=== PATIENT | female | born 1950 | race Caucasian/White ===

== ENCOUNTER 2023-10-09 20:04 | Emergency (ER) | payer MEDICARE ==
[2023-10-09 20:08] VITALS: RESP 16; TEMP 98.3
--- NOTE | 2023-10-09 20:09 | ERPHSYRPT ---
- History of Present Illness Time Seen by Provider: 10/09/23 20:09 Source: patient, family Exam Limitations: no limitations Physician History: This is a 72-year-old white female patient of Dr. Funez who presents with sudden onset of mid back pain approximately 1500 prior to arrival today. She has had a moderate cough that is productive of yellow sputum. The pain is described as sharp and stabbing. Patient does see a extruding press adjuster, Dr. Munoz. In January 2023 patient underwent an echocardiogram which showed mild aortic insufficiency and trace mitral valve and tricuspid valve regurgitation. In addition the ejection fraction was estimated at 70% which is normal. The echo also showed normal left ventricular systolic function. In January 2023 she also underwent a nuclear medicine stress test which showed a normal ejection fraction. There was no scintigraphic evidence for exercise-induced reversible ischemia. Patient is here today because of cough and significant mid back pain. She has had approximately 1 week history of flulike symptoms. This includes the cough that is productive and diarrhea. She has not had nausea or vomiting Timing/Duration: today Activities at Onset: none Severity of Dyspnea-Max: mild Severity of Dyspnea-Current: mild Possible Cause: no prior episodes Modifying Factors: Improves With: coughing Associated Symptoms: cough, painful breathing, productive cough (Yellowish sputum) Allergies/Adverse Reactions: Penicillins Allergy (Severe, Verified 10/09/23 20:25) Anaphylactic Reaction Home Medications: Amlodipine Besylate [Norvasc] 10 mg PO BID 10/09/23 [History] Estradiol [Estrace] 2 mg PO DAILY 10/09/23 [History] Furosemide 20 mg [Lasix 20 mg] 20 mg PO DAILY 10/09/23 [History] Hydrocodone/Acetaminophen [Hydrocodone-Acetamin 10-325 mg] 1 each PO Q4-6HPRN PRN 10/09/23 [History] Levothyroxine Sodium [Synthroid] mcg PO DAILY 10/09/23 [History] Montelukast Sodium 10 mg [Singulair 10 MG] 10 mg PO DAILY 10/09/23 [History] Propranolol HCl [Inderal Xl] 80 mg PO DAILY 10/09/23 [History] Tizanidine HCl 4 mg [Zanaflex 4 MG] 4 mg PO QID PRN PRN 10/09/23 [History] Zolpidem Tartrate 10 mg [Ambien 10 MG] 10 mg PO HS 10/09/23 [History] Travel Risk - International Travel Have you traveled outside of the country in past 3 weeks: No - Emerging Infectious Disease Are you exhibiting symptoms associated with any current EIDs: Yes Symptoms: Cough: New Onset, Diarrhea - Review of Systems Eyes: No Symptoms Ears, Nose, & Throat: No Symptoms Respiratory: Cough Cardiac: No Symptoms Abdominal/Gastrointestinal: Diarrhea, No Abdominal Pain, No Nausea, No Vomiting Genitourinary Symptoms: No Symptoms Musculoskeletal: No Symptoms Skin: No Symptoms Neurological: No Symptoms Psychological: No Symptoms Endocrine: No Symptoms Hematologic/Lymphatic: No Symptoms Immunological/Allergic: No Symptoms All Other Systems: Reviewed and Negative - Past Medical History Pertinent Past Medical History: Yes - Nursing Vital Signs Nursing Vital Signs: Initial Vital Signs Temperature 98.3 F 10/09/23 20:05 Pulse Rate 98 H 10/09/23 20:05 Respiratory Rate 16 10/09/23 20:05 Blood Pressure 147/110 10/09/23 20:05 O2 Sat by Pulse Oximetry 99 10/09/23 20:05 Pain Scale Pain Intensity 9 - Physical Exam General Appearance: no apparent distress, alert, anxiety, thin Eye Exam: PERRL/EOMI, eyes nml inspection Ears, Nose, Throat Exam: hearing grossly normal, normal ENT inspection, normal pharynx Neck Exam: normal inspection, non-tender, supple, full range of motion Respiratory Exam: normal breath sounds, lungs clear, airway intact, No chest tenderness, No respiratory distress Cardiovascular/Chest Exam: normal heart sounds, regular rate/rhythm, normal peripheral pulses Abdominal/Gastrointestinal Exam: soft, normal bowel sounds, No tenderness Rectal Exam: not done Extremity Exam: non-tender, normal range of motion, normal inspection, normal capillary refill, no calf tenderness, no pedal edema, pelvis stable Neurologic Exam: alert, oriented x 3, cooperative, director multiple sclerosis center II-XII nml as tested, normal mood/affect, nml cerebellar function, nml station & gait, sensation nml Skin Exam: normal color, warm, dry Lymphatic Exam: No adenopathy SpO2 Interpretation: normal SpO2: 99 O2 Delivery: Room Air - Course Nursing assessment & vital signs reviewed: Yes EKG Interpreted by Me: RATE (98), Sinus Rhythm, NORMAL AXIS, prolonged QT interval, Other (No acute ischemic changes on today's twelve-lead EKG. Her QTc is 506. No comparison twelve-lead EKG available) Ordered Tests: Active Orders 24 hr Category Date Time Status Fitness Manager STAT Care 10/09/23 20:23 Active EKG-ER Only STAT Care 10/09/23 20:22 Active IV Insertion STAT Care 10/09/23 20:22 Active Pulse Oximetry (ED) STAT Care 10/09/23 20:22 Active CHEST WITHOUT CONTRAST [CT] Stat Exams 10/09/23 21:40 Completed BLOOD CULTURE Stat Lab 10/09/23 20:58 Received CBC W DIFF Stat Lab 10/09/23 20:34 Completed CMP Stat Lab 10/09/23 20:34 Completed D-DIMER QUANTITATIVE Stat Lab 10/09/23 20:34 Completed Lactic Acid Stat Lab 10/09/23 20:23 Completed MAGNESIUM Stat Lab 10/09/23 20:34 Completed NT PRO BNPII Stat Lab 10/09/23 20:34 Completed TROPONIN Q4H Lab 10/09/23 20:34 Completed TROPONIN Q4H Lab 10/10/23 00:30 Ordered TROPONIN Q4H Lab 10/10/23 04:30 Ordered Medication Summary Discontinued Medications Generic Name Dose Route Start Last Admin Trade Name Freq PRN Reason Stop Dose Admin Aspirin 324 mg 10/09/23 20:22 10/09/23 20:39 Aspirin 81 Mg Tab.Chew PO 10/09/23 20:23 324 mg STAT ONE Administration Aspirin Confirm 10/09/23 20:38 Aspirin 81 Mg Tab.Chew Administered 10/09/23 20:39 Dose 324 mg .ROUTE .[facility] ONE Lab/Rad Data: Laboratory Result Diagrams 10/09/23 20:34 10/09/23 20:34 Laboratory Results 10/09/23 10/09/23 10/09/23 Range/Units 20:58 20:34 20:34 WBC (3.98-10.04) x10^3/uL RBC (3.93-5.22) x10^6/uL Hgb (11.2-15.7) g/dL Hct (34.1-44.9) % MCV (79.4-94.8) fL MCH (25.6-32.2) pg MCHC (32.2-35.5) g/dL RDW (11.7-14.4) % Plt Count (182-369) x10^3/uL MPV (9.4-12.3) fL Gran % (34.0-71.1) % Immature Gran % (Auto) (0.001-0.429) % Nucleat RBC Rel Count (0.00-0.2) % Eos # (Auto) (0.04-0.36) x10^3/uL Immature Gran # (Auto) (0.001-0.031) x10^3u/L Absolute Lymphs (auto) (1.18-3.74) x10^3/uL Absolute Monos (auto) (0.24-0.86) x10^3/uL Absolute Nucleated RBC (0.00-0.012) x10^3u/L Lymphocytes % (19.3-51.7) % Monocytes % (4.7-12.5) % Eosinophils % (0.7-5.8) % Basophils % (0.1-1.2) % Absolute Granulocytes (1.56-6.13) x10^3/uL Basophils # (0.01-0.08) x10^3/uL D-Dimer 0.41 (0.0-0.50) mg/L Sodium (135-145) mmol/L Potassium (3.5-5.1) mmol/L Chloride (98-107) mmol/L Carbon Dioxide (22-30) mmol/L Anion Gap (5-15) MEQ/L BUN (7-17) mg/dL Creatinine (0.52-1.04) mg/dL Estimated GFR ML/MIN Glucose (74-106) mg/dL Lactic Acid (0.4-2.0) Calcium (8.4-10.2) mg/dL Magnesium (1.6-2.3) mg/dL Total Bilirubin (0.2-1.3) mg/dL AST (14-36) U/L ALT (0-35) U/L Alkaline Phosphatase (38-126) U/L Troponin I < 0.012 (0.000-0.033) ng/mL NT-Pro-B Natriuret Pep 177 (<300) pg/mL Serum Total Protein (6.3-8.2) g/dL Albumin (3.5-5.0) g/dL Influenza Type A Ag NEGATIVE (NEGATIVE) Influenza Type B Ag NEGATIVE (NEGATIVE) RSV (PCR) NEGATIVE (NEGATIVE) SARS-CoV-2 (PCR) NEGATIVE (NEGATIVE) 10/09/23 10/09/23 10/09/23 Range/Units 20:34 20:34 20:23 WBC 6.9 (3.98-10.04) x10^3/uL RBC 3.79 L (3.93-5.22) x10^6/uL Hgb 12.6 (11.2-15.7) g/dL Hct 37.3 (34.1-44.9) % MCV 98.4 H (79.4-94.8) fL MCH 33.2 H (25.6-32.2) pg MCHC 33.8 (32.2-35.5) g/dL RDW 11.6 L (11.7-14.4) % Plt Count 221 (182-369) x10^3/uL MPV 9.3 L (9.4-12.3) fL Gran % 55.2 (34.0-71.1) % Immature Gran % (Auto) 0.3 (0.001-0.429) % Nucleat RBC Rel Count 0.0 (0.00-0.2) % Eos # (Auto) 0.08 (0.04-0.36) x10^3/uL Immature Gran # (Auto) 0.02 (0.001-0.031) x10^3u/L Absolute Lymphs (auto) 2.37 (1.18-3.74) x10^3/uL Absolute Monos (auto) 0.58 (0.24-0.86) x10^3/uL Absolute Nucleated RBC 0.00 (0.00-0.012) x10^3u/L Lymphocytes % 34.2 (19.3-51.7) % Monocytes % 8.4 (4.7-12.5) % Eosinophils % 1.2 (0.7-5.8) % Basophils % 0.7 (0.1-1.2) % Absolute Granulocytes 3.83 (1.56-6.13) x10^3/uL Basophils # 0.05 (0.01-0.08) x10^3/uL D-Dimer (0.0-0.50) mg/L Sodium 139 (135-145) mmol/L Potassium 3.6 (3.5-5.1) mmol/L Chloride 103 (98-107) mmol/L Carbon Dioxide 24 (22-30) mmol/L Anion Gap 15.7 H (5-15) MEQ/L BUN 34 H (7-17) mg/dL Creatinine 1.50 H (0.52-1.04) mg/dL Estimated GFR 36.8 ML/MIN Glucose 115 H (74-106) mg/dL Lactic Acid 1.5 (0.4-2.0) Calcium 9.7 (8.4-10.2) mg/dL Magnesium 1.5 L (1.6-2.3) mg/dL Total Bilirubin 0.30 (0.2-1.3) mg/dL AST 21 (14-36) U/L ALT 16 (0-35) U/L Alkaline Phosphatase 73 (38-126) U/L Troponin I (0.000-0.033) ng/mL NT-Pro-B Natriuret Pep (<300) pg/mL Serum Total Protein 7.4 (6.3-8.2) g/dL Albumin 4.2 (3.5-5.0) g/dL Influenza Type A Ag (NEGATIVE) Influenza Type B Ag (NEGATIVE) RSV (PCR) (NEGATIVE) SARS-CoV-2 (PCR) (NEGATIVE) - Progress Progress: improved, re-examined Air Movement: good Progress Note: 10/09/23 22:43 My medical decision making and the assignment of moderate complexity to this patient's medical issue today is based on review of the patient's past medical history, review of the patient's medication list, review of the patient's drug allergy list, history present illness and physical findings on examination. The workup in this patient includes placement of intravenous line, infusion normal saline solution, infusion of Solu-Medrol 125 mg, CBC, CMP, twelve-lead EKG, D- dimer, BNP level, troponin level, viral swabs. Differential diagnosis includes but is not limited to viral illness, bacterial pneumonia, viral pneumonia, pulmonary embolus, intrathoracic acute abnormality, acute spinal abnormality 10/09/23 22:48 I interpreted the patient's laboratory data results. Based on the laboratory data results, the patient does not have an acute, emergent medical issue. CT scan of the chest without contrast was interpreted by the radiologist and I reviewed the impression. Pression states bibasilar atelectasis. No acute cardiopulmonary pathology. Blood Culture(s) Obtained: Yes Antibiotics given: Yes Counseled pt/family regarding: lab results, diagnosis, need for follow-up, rad results Medical Desision Making - Diagnostic Testing Diagnostic test were ordered, analyzed, and reviewed by me: Yes Radiological Interpretation: Reviewed by me, Teleradiologist Report - Risk of complications The pt has a mod risk of morbidity or mortality based on: Need for prescription drug management - Departure Departure Disposition: Home Clinical Impression: Upper respiratory infection Condition: Stable Critical Care Time: No Referrals: SHARMILA FUNEZ MD [Primary Care Provider] - Follow up/PCP as directed Additional Instructions: Drink plenty of fluids. Take your antibiotics and steroids as prescribed. Call your primary care provider tomorrow, 10/10/2023 to make arrangement for follow-up appointment to be evaluated in the next 3 to 5 days. Prescriptions: Prednisone 10 mg [Deltasone 10 mg] 10 mg PO TID #12 tablet Levofloxacin [Levaquin 500 MG Tablet] 500 mg PO DAILY #7 tablet
[2023-10-09] MEDS ORDERED: BABY ASPIRIN 81 MG CHEW ONE (20:38)
[2023-10-09] MEDS: BABY ASPIRIN 81 MG CHEW PO ONE (20:39)
[2023-10-09 20:40] LABS: Absolute Neutrophil Ct (ANC) 3.83 x10^3/uL (1.56-6.13); BASOPHIL % 0.7 % (0.1-1.2); Basophil (Absolute #) 0.05 x10^3/uL (0.01-0.08); Eosinophil % 1.2 % (0.7-5.8); Eosinophil (Absolute #) 0.08 x10^3/uL (0.04-0.36); Hematocrit 37.3 % (34.1-44.9); Hemoglobin 12.6 g/dL (11.2-15.7); IMMATURE GRAN # 0.02 x10^3u/L (0.001-0.031); IMMATURE GRAN % 0.3 % (0.001-0.429); Lymphocyte (Absolute #) 2.37 x10^3/uL (1.18-3.74); Lymphocytes % 34.2 % (19.3-51.7); Mean Cell Volume 98.4 fL (79.4-94.8); Mean Corpuscular Hemoglobin 33.2 pg (25.6-32.2); Mean Corpuscular Hgb Concent. 33.8 g/dL (32.2-35.5); Mean Platelet Volume 9.3 fL (9.4-12.3); Monocyte (Absolute #) 0.58 x10^3/uL (0.24-0.86); Monocytes % 8.4 % (4.7-12.5); Neutrophil % 55.2 % (34.0-71.1); Platelet Count 221 x10^3/uL (182-369); Red Blood Count 3.79 x10^6/uL (3.93-5.22); Red Cell Distribution Width 11.6 % (11.7-14.4); White Blood Count 6.9 x10^3/uL (3.98-10.04)
[2023-10-09 20:54] LABS: ALBUMIN 4.2 g/dL (3.5-5.0); ANION GAP 15.7 MEQ/L (5-15); BILIRUBIN,TOTAL 0.3 mg/dL (0.2-1.3); Calcium 9.7 mg/dL (8.4-10.2); Creatinine 1 1.5 mg/dL (0.52-1.04); EST GLOMERULAR FILTRATION RATE 36.8 ML/MIN; MAGNESIUM 1.5 mg/dL (1.6-2.3); Potassium 3.6 mmol/L (3.5-5.1); Total Protein 7.4 g/dL (6.3-8.2)
[2023-10-09 21:06] LABS: NT PRO BNPII 177 pg/mL (<300); TROPONIN < 0.012 ng/mL (0.000-0.033)
[2023-10-09 21:38] LABS: INFLUENZA A NEGATIVE (NEGATIVE); INFLUENZA B NEGATIVE (NEGATIVE); RESPIRATORY SYNCTIAL VIRUS NEGATIVE (NEGATIVE); SARS-CoV-2 Xpert Express NEGATIVE (NEGATIVE)
--- NOTE | 2023-10-09 22:36 | XRAY ---
CLINICAL HISTORY: Productive cough; sharp upper back COMPARISON: None. TECHNIQUE: An axial CT images of the chest were acquired without the administration of intravenous contrast. Coronal and sagittal reconstructions were obtained. One of the following dose reduction techniques was utilized for this exam: Automated exposure control, adjustment of the mA and/or kV according to patient size, and use of iterative reconstruction. FINDINGS: The scanned pulmonary parenchyma shows no definite consolidative lesions. Mild bibasilar atelectasis is identified. No free or encysted pleural effusion. Heart size is normal, and there is no pericardial effusion. No pathologically enlarged mediastinal, hilar or axillary lymph node was identified. There is no definite mass lesion in the chest wall. Scanned upper abdomen reveals a partly exophytic cyst in the interpolar region of left kidney measuring 34 x 43 mm on axial section. 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 Degenerative changes are identified in the visualized spine. A hemangioma is identified within T9 vertebral body. IMPRESSION: 1. Bibasilar atelectatic changes. 2. No acute cardiopulmonary pathology was identified. 3. The rest of the findings are as stated above. Electronically Signed by: Ragini Burr MD. (10/09/2023 22:31:55 EDT)
[2023-10-09] MEDS ORDERED: Sterile H2O 10 ml IJ ONE (22:50)
[2023-10-09] MEDS ORDERED: Levofloxacin 500 MG Tablet ONE (22:50)
[2023-10-09] MEDS ORDERED: Sodium Chloride 0.9% 500 ML 500 ML IV ONE (22:51)
[2023-10-09] MEDS ORDERED: solu-MEDROL ONE (22:51)
[2023-10-09] MEDS: solu-MEDROL 125 MG, Sterile H2O 10 ml 2 ML IV ONE (23:00)
[2023-10-09] MEDS: Levofloxacin 500 MG Tablet PO ONE (23:00)
[2023-10-09] MEDS: Sodium Chloride 0.9% 500 ML 500 ML IV ONE (23:01)
[2023-10-09 23:03] VITALS: BP 156/100; PULSE 88; O2SAT 97
== END 2023-10-09 23:31 | disposition home or self-care (01) ==
LOC: ED 20:04
DX: J06.9 Acute upper respiratory infection, unspecified (principal); M54.6 Pain in thoracic spine; R05.9 Cough, unspecified; R19.7 Diarrhea, unspecified; Z79.891 Long term (current) use of opiate analgesic; Z79.52 Long term (current) use of systemic steroids; Z79.899 Other long term (current) drug therapy
CPT/HCPCS: 0241U; 36000; 36415; 71250; 80053; 83605; 83735; 83880; 84484; 85025; 85379; 87040; 93005; 93041; 94760; 96374; 99284; J2919; A9270-GY

== ENCOUNTER 2024-04-13 12:57 | Emergency (ER) | payer MEDICARE | END 2024-04-13 14:28 | disposition left against medical advice (07) | LOC: ED 12:57 | DX: Z53.21 Procedure and treatment not carried out due to patient leaving prior to being seen by health care provider (principal) ==